=== PATIENT | female | born 1955 | race Native Hawaiian/Other Pacific Islander ===

== ENCOUNTER 2017-04-27 10:41 | Observation (INO) | payer OTHER ==
[2017-04-27 11:18] VITALS: BMI 19.5
[2017-04-27] MEDS ORDERED: Tdap Vaccine 0.5 ml Vial (10-64 yrs) IM ONE (11:19)
[2017-04-27] MEDS ORDERED: Bacitracin OINT 15GM TOP STA (11:19)
--- NOTE | 2017-04-27 11:30 | ED PDOC ---
Upper Extremity Pain/Injury Time Seen by Provider: 04/27/17 11:12 Chief Complaint (Nursing): Upper Extremity Problem/Injury Chief Complaint (Provider): Left wrist injury History Per: Patient History/Exam Limitations: no limitations Onset/Duration Of Symptoms: Days (1 day ago) Current Symptoms Are (Timing): Still Present Additional Complaint(s): 62 yo female presents to the ED complaining of sustaining a left wrist injury after tripping and falling, onset of 1 day ago. Patient reports of taking anvil last night but still complains of persistent pain and swelling. Patient reports of no other injuries and refuses any more pain medication at the time. Past Medical History Reviewed: Historical Data, Nursing Documentation, Vital Signs Vital Signs: Last Vital Signs Temp 98.1 F 04/27/17 11:22 Pulse 69 04/27/17 11:22 Resp 20 04/27/17 11:22 BP 166/89 H 04/27/17 11:22 Pulse Ox 100 04/27/17 11:22 - Medical History PMH: No Chronic Diseases - Surgical History Surgical History: No Surg Hx - Family History Family History: States: Unknown Family Hx - Social History Current smoker - smoking cessation education provided: No Ex-Smoker (has not smoked in the last 12 months): No Alcohol: None Drugs: Denies - Allergies Allergies/Adverse Reactions: Allergies Allergy/AdvReac Type Severity Reaction Status Date / Time No Known Allergies Allergy Verified 04/27/17 11:22 Review of Systems ROS Statement: Except As Marked, All Systems Reviewed And Found Negative Musculoskeletal: Positive for: Hand Pain (wrist pain) Physical Exam - Reviewed Nursing Documentation Reviewed: Yes Vital Signs Reviewed: Yes - Physical Exam Appears: Positive for: Non-toxic, No Acute Distress Head Exam: Positive for: ATRAUMATIC, NORMAL INSPECTION, NORMOCEPHALIC Skin: Positive for: Normal Color Eye Exam: Positive for: Normal appearance Extremity: Positive for: Normal ROM, Capillary Refill (< 2 seconds), Swelling, Other (bruising and mnimal deformity of the left wrist; superficial abrasion on the ventral aspect of the wrist where she struck the gound; hand and fingers unremarkable; good sensation ) Neurologic/Psych: Positive for: Alert, Oriented. Negative for: Motor/Sensory Deficits - ECG O2 Sat by Pulse Oximetry: 100 (RA) Pulse Ox Interpretation: Normal Medical Decision Making Medical Decision Making: Time: --11:19 Impression: --Left wrist injury, rule out fracture Plan: --Bacitracin 1 applic TOP --Tetanus/ Reduced Dip --Cold Pack Treatment --Left Wrist X-ray 3 views Reassess --12:17 Patient has a displaced wrist fracture. Discussed case with orthopedist, Dr. Richardson, who will see the patient in the Emergency room. Scribe Attestation: Documented by Jose Eduardo Schaeffer acting as a scribe for Varun Vyas DO. Provider Attestation: All medical record entries made by the Scribe were at my direction and personally dictated by me. I have reviewed the chart and agree that the record accurately reflects my personal performance of the history, physical exam, medical decision making, and the department course for this patient. I have also personally directed, reviewed, and agree with the discharge instructions and disposition. Disposition - Clinical Impression Clinical Impression: Fracture of wrist Discussed With : James Richardson (ortho consult) Doctor Will See Patient In The: ED - Disposition Disposition Time: 13:15 Condition: STABLE
[2017-04-27] MEDS ORDERED: Lidocaine 1% Inj (20ml) ONE ×2 (12:35→14:42)
[2017-04-27 13:52] LABS: BASO % 0.9 % (0.0-2.0); EOS % 0.4 % (0.0-4.0); HEMOGLOBIN 12.8 g/dL (12.0-16.0); LYMPH # 0.9 K/uL (1.0-4.3); MEAN CELL VOLUME 105.5 fl (81.0-99.0); MEAN CORPUSCULAR HEMOGLOBIN 34.9 pg (27.0-31.0); MEAN CORPUSCULAR HGB CONC 33.1 g/dL (33.0-37.0); MEAN PLATELET VOLUME 7.4 fl (7.2-11.7); MONO # 0.2 K/uL (0.0-0.8); NEUT # 2.8 K/uL (1.8-7.0); NEUT % 69.7 % (50.0-75.0); NRBC % 0.1 % (0.0-0.0); RBC 3.67 Mil/uL (3.80-5.20); RED CELL DISTRIBUTION WIDTH 14.5 % (11.5-14.5)
--- NOTE | 2017-04-27 13:57 | RAD ---
PROCEDURE: Right Wrist Radiographs. HISTORY: post reduction COMPARISON: None. FINDINGS: BONES: Impaction fracture of the distal radius. Cast obscures bone detail. JOINTS: Normal. No dislocation. SOFT TISSUES: Normal. OTHER FINDINGS: None. IMPRESSION: Impaction fracture of the distal radius. Cast obscures bone detail.
[2017-04-27 14:05] LABS: ALB/GLOB RATIO 1.5 (1.0-2.1); ALBUMIN 4.6 g/dL (3.5-5.0); ALT/SGPT 37 U/L (9-52); AST/SGOT 42 U/L (14-36); BLOOD UREA NITROGEN 14 mg/dl (7-17); CALCIUM 9.8 mg/dL (8.4-10.2); GFR AFRICAN-AMERICAN > 60; GFR NON-AFRICAN AMERICAN > 60
[2017-04-27 14:13] LABS: INR 0.9 (0.9-1.2); PARTIAL THROMBOPLASTIN TIME 26.3 Seconds (25.6-37.1); PROTHROMBIN TIME 10.4 Seconds (9.8-13.1)
[2017-04-27] MEDS ORDERED: Bupivacaine 0.5% Inj(30mL) ONE (14:42)
[2017-04-27] MEDS ORDERED: Lidocaine 1% 5ml Abboject IV ONE (14:58)
[2017-04-27] MEDS ORDERED: Midazolam 2 MG/2 ML VIAL ONE (14:58)
[2017-04-27] MEDS ORDERED: Propofol 10 mg/ml Inj (20 ML) ONE (14:58)
[2017-04-27] MEDS ORDERED: Lidocaine 2% Jelly (5 ml) TOP ONE (14:59)
[2017-04-27] MEDS ORDERED: Lactated Ringer's 1,000 ML IV ONE (15:33)
[2017-04-27] MEDS ORDERED: ePHEDrine 50 mg/ml Inj ONE (15:50)
--- NOTE | 2017-04-27 15:51 | RAD ---
PROCEDURE: Right Wrist Radiographs. HISTORY: fall COMPARISON: None. FINDINGS: BONES: Impaction fracture of the distal radius with volar angulation. JOINTS: Normal. No dislocation. SOFT TISSUES: Normal. OTHER FINDINGS: None. IMPRESSION: Impaction fracture of the distal radius with volar angulation.
--- NOTE | 2017-04-27 15:54 | RAD ---
PROCEDURE: CHEST RADIOGRAPH, 1 VIEW HISTORY: pre-op COMPARISON: None available. FINDINGS: LUNGS: Clear. PLEURA: No pneumothorax or pleural fluid seen. CARDIOVASCULAR: Normal. OSSEOUS STRUCTURES: No significant abnormalities. VISUALIZED UPPER ABDOMEN: Normal. OTHER FINDINGS: None. IMPRESSION: No active disease.
--- NOTE | 2017-04-27 17:02 | PCM.SURG1 ---
Surgeon's Initial Post Op Note - Surgeon's Notes Surgeon: Dr. James Richardson MD, Dr. Tereza Ribera MD Dry Cleaner Hand: Dr. Babs Rod DPM PGY-1 Type of Anesthesia: General LMA Anesthesia Administered By: Dr. Radha MURDOCK Pre-Operative Diagnosis: Left Radial Fracture Operative Findings: See dictation Post-Operative Diagnosis: Same Operation Performed: Left distal Radius open reduction internal fixation Specimen/Specimens Removed: None Estimated Blood Loss: EBL {In ML}: 5 Blood Products Given: N/A Drains Used: No Drains Post-Op Condition: Good Date of Surgery/Procedure: 04/27/17 Time of Surgery/Procedure: 17:02
[2017-04-27] MEDS ORDERED: HYDROmorphone 0.5 mg/0.5 ml ISec IVP PRN (17:17)
--- NOTE | 2017-04-27 17:26 | PCM.ANESB4 ---
Infraclavicular Block - Femoral Nerve Block Date of Procedure: 04/27/17 Anesthesiologist: Dr. Hooks Pre-Procedure Diagnosis: S/P ORIF right distal radius fracture Post-Procedure Diagnosis: S/P ORIF right distal radius fracture Procedure Performed: Brachial Plexus at the Infraclavicular area Right - Procedure Infraclavicular Block: The procedure was explained to the patient that it is for the post-operative pain management. Consent was obtained after a thorough discussion with the patient regarding the benefits and possible complications of local anesthetic block of the brachial plexus at the infraclavicular area. The patient was brought to the operating room and standard monitors were applied. Time-out was held with the circulating nurse to confirm the correct surgery and the appropriate block. After the surgery while still under general anesthesia, patient's head was gently rotated away from the operative right shoulder and the area medial to the coracoid process and inferior to the clavicle was carefully palpated. The ultrasound transducer was then applied to the skin in the transverse plane and the brachial plexus was visualized surrounding the axillary artery and deep to the pectoralis major and minor muscles. After thorough identification, this area was prepped with Chloraprep solution. At this point, a #20 gauge Stimuplex 4-inch needle was inserted cephalad to the ultrasound transducer and inferior to the clavicle in-plane towards the posterior aspect of the axillary artery. Needle advancement was performed carefully under ultrasound visualization. After repeated negative aspiration, 5cc of 0.5% Ropivacaine was injected and this was followed with 25cc of 0.5% Ropivacaine. Under ultrasound guidance the local anesthetics were observed surrounding the cords of the brachial plexus. The needle was removed intact and sterile dressing was applied. The patient had stable vital signs, was awaken from anesthesia and in no apparent distress. The patient tolerated the infraclavicular block of the brachial plexus well with stable vital signs and was transported to ICU to recover.
[2017-04-27] MEDS ORDERED: Lactated Ringer's 1,000 ML IV SCH (17:30)
[2017-04-27 18:58] VITALS: BP 153/86; PULSE 74; RESP 20; TEMP 97.3; O2SAT 99
--- NOTE | 2017-04-28 09:01 | CARD ---
APPROVED REPORT EKG Measurement Heart [id number] <Conclusion> Normal sinus rhythm Possible septal infarct, age undetermined Abnormal ECG excessive baseline artefact
--- NOTE | 2017-04-28 12:51 | OP ---
PROCEDURE DATE: 04/27/2017 PREOPERATIVE DIAGNOSIS: Displaced left open distal radius and a fracture greater than 3 pieces. POSTOPERATIVE DIAGNOSIS: Displaced left open distal radius and a fracture greater than 3 pieces. PROCEDURE: 1. Left distal radius open reduction and internal fixation of 3 fragments, 50087. 2. Debridement of open fracture of skin muscle and bone, 13456. SURGEON: James Richardson MD CASH MANAGEMENT ASSOCIATE: Tereza Ribera MD TYPE OF ANESTHESIA: General followed by postoperative left upper extremity block. ESTIMATED BLOOD LOSS: Minimal. COMPLICATIONS: None. SPECIMEN: None. DISPOSITION: Stable to recovery room. INDICATIONS: This is a 62-year-old female who presents to [facility] with displaced open fracture of distal radius. The patient failed closed reduction in the emergency room and is indicated for the above procedure. Risks and benefits of the procedure were explained. Risks include, but not limited to bleeding, infection, tendon, nerve, vessel injury, instability, chronic pain, and potential need for additional surgery in the future. The patient understood the above risks and elected to proceed. DESCRIPTION OF PROCEDURE: The patient was taken to the operating room and placed supine on the operating room table. After adequate regional anesthesia and supplemental internal sedation was given. A well-padded nonsterile tourniquet was applied to the patient's left upper extremity. Left upper extremity was then prepped and draped in a standard surgical fashion. Prophylactic antibiotics were given. The proposed incision was marked out with a sterile marking pen. This was a longitudinal incision along the course of the flexor carpi radialis tendon. The incision angle across the wrist flexion crease, the arm was elevated, and exsanguinated with an Esmarch bandage. The tourniquet was inflated to 250 mmHg and the Esmarch bandage was then removed. An incision was made through the skin only. All superficial veins were cauterized. Dissection was performed down to the superficial layer of the flexor carpi radialis sheath. It was incised along its radial- most border. The flexor carpi radialis tendon was retracted ulnarly. The floor of the FCR sheath was incised as well along its radial-most border. Dissection was then carried down between the radial artery and the flexor hallucis longus. Any intervening small branches of the radial artery were cauterized. The pronator quadratus was then incised in shaped fashion over its insertion of the radius. The fracture was then visualized and was displaced. The distal radius and distal ulnar were then debrided with use of rongeurs, curettes, and copious amount of irrigation. The fracture fragments were also cleaned out with rongeurs and curettes. The local hematoma was removed, reduction maneuver was then performed, this included traction, hyperflexion, and use of bone tamp to reduce the fracture fragments. Next, Synthes volar distal locking plate was applied to the volar aspect of the distal radius, was temporarily transfixed with Tracie wires and its location was assessed under image intensification . Excellent placement of the plate was seen and near anatomic reduction was obtained as well. Three 3.5 mm screws were placed in the proximal part of the plate followed by fixed angle traction of the distal aspect of the plate. Once again, fracture was assessed under image intensification and excellent screw placement and anatomic reduction of the fracture was seen. Temporary K-wires were then removed, both screws were tightened once again, x-rays revealed excellent placement of the screws with no screws penetrating the radiocarpal joint or DRUJ. All screws length was noted to be of excellent length. The wound was then irrigated copiously. The DRUJ was assessed and it was stable, full passive range of motion of the wrist and elbow was obtained. The tourniquet was deflated. Hemostasis was obtained using bipolar cautery. The skin was then closed with 3-0 and 4-0 nylon interrupted sutures. Sterile dressing was applied consisting of fluffs, 4 x 4, then the volar, thumb spica splint. The patient tolerated the procedure well. Prior to placement of the dressings, two [place] drains were placed into the wound for prevention of hematoma. The patient tolerated the procedure well and was brought to the recovery room, awake, alert and in excellent condition. During the surgery, I was assisted by Dr. Tereza Ribera, board certified orthopedic surgeon. His help was needed in the critical parts of the surgery including reduction and fixation of the fracture fragments. James Richardson MD
--- NOTE | 2017-04-29 08:07 | CON ---
DATE: 04/27/2017 REASON FOR CONSULTATION: Left distal radius fracture. HISTORY OF PRESENT ILLNESS: A 62-year-old right-hand dominant female who presents to [facility] with a complaint of left wrist pain and . The patient sustained a fall from a chair earlier today landing on her outstretched left hand. She had immediate pain, swelling, of the wrist and presents to Emergency Room today . I was consulted for evaluation and treatment of the patient's wrist trauma. Pain 5/10 in severity. Denies paresthesia and has difficulty making a fist. PHYSICAL EXAMINATION: EXTREMITIES: Left wrist, there is gross deformity of the wrist. There is a diffuse swelling over the distal radius area and tenderness to palpitation. There is abrasion and opening of the skin on the lower side of the ulnar. Sensation is intact to median, ulnar, and radial nerve distribution. The patient has active flexion and extension of MP, PIP, and DIP joints throughout all digits. No tenderness over the elbow, full elbow range of motion. No tenderness over the shoulder, full shoulder range of motion. LABORATORY DATA: X-rays of the left wrist was seen and reviewed show a highly comminuted distal radius fracture greater than three-quarters intraarticular with possibly the height and dorsal comminution with dorsal angulation. ASSESSMENT: Left displaced distal radius fracture with open wound. PLAN: I discussed above findings with the patient. At this time, I recommended close reduction in the Emergency Room. Informed consent was obtained. A block to the left wrist was performed with 10 mL lidocaine. The left wrist was then . After application of the counter pressure close reduction maneuvering was performed, which included traction, hyperextension followed by hyperflexion of the wrist while holding reduction in place, the sugar tong splint was applied to the wrist. The patient tolerated the procedure well. Close reduction x-rays were performed in the Emergency Room. Postreduction films shows improvement in of the radial ulnar height; however, the patient still had unacceptable dorsal angular with the high comminution. I had a long discussion with the patient regarding the above findings and due to failure of closed reduction, recommended surgery. Surgery includes left distal radius, open reduction followed by internal fixation and also debridement of the open wound. The patient was taken urgently to the operation room for the above procedure. James Richardson MD
== END 2017-04-27 20:00 | disposition home health service (06) ==
LOC: H.ER 10:41 → H.ERHOLD 13:08 → H.MEDSURG1 19:04
PROVIDERS: ADMIT Orthopaedic Surgery; ATTEND Orthopaedic Surgery
DX: S52.502A Unspecified fracture of the lower end of left radius, initial encounter for closed fracture (principal); W07.XXXA Fall from chair, initial encounter; Z23 Encounter for immunization
CPT/HCPCS: 11012; 25609; 64415; 71045; 73110; 80053; 85025; 85610; 85730; 90471; 90715; 93005; 99283; C1713; G0378; J0690; J2250; J2704; J2765; J3010; J7030; J7120